=== PATIENT | female | born 1995 | race Caucasian/White ===

== ENCOUNTER 2016-10-24 22:30 | Emergency (ER) | payer OTHER ==
[2016-10-24 22:45] VITALS: BP 104/59; PULSE 86; TEMP 98.4; BMI 23.2
[2016-10-24 23:19] LABS: URINE APPEARANCE CLOUDY; URINE BILIRUBIN NEGATIVE (NEGATIVE); URINE BLOOD 2+ (NEGATIVE); URINE COLOR YELLOW; URINE GLUCOSE (UA) NEGATIVE (NEGATIVE); URINE KETONE NEGATIVE (NEGATIVE); URINE NITRITE NEGATIVE (NEGATIVE); URINE UROBILINOGEN 4.0 E.U/dl mg/dL (0.2-1.0)
[2016-10-24 23:28] LABS: URINE LEUK ESTERASE 3+ (NEGATIVE); URINE PROTEIN 2+ (NEGATIVE)
[2016-10-24 23:30] LABS: URINE BACTERIA RARE /hpf (NONE SEEN); URINE RBC 358 /hpf (0-3); URINE WBC 454 /hpf (3-5)
--- NOTE | 2016-10-24 23:47 | PDOC ---
History of Present Illness - General Chief Complaint: Urinary Problem Stated Complaint: PAIN WITH URINATION Time Seen by Provider: 10/24/16 23:16 History Source: Patient Exam Limitations: No Limitations - History of Present Illness Travel History: No Initial Comments: 10/24/16 23:43 20yo Female patient with no significant past medical history presents to ED c/o frequent urination, urgency, pain on urination and bleeding. Patient reports symptoms began yesterday. Associated back pain. Denies fever, n/v/d, abd pain, diff breathing, rash, vaginal bleeding, or any other complaints at this time. LNMP: Oct 08. Timing/Duration: reports: getting worse Quality: reports: mild Abdominal Pain Onset Location: reports: suprapubic Pain Radiation: reports: no radiation Activities at Onset: denies: none, exertion, emotional upset, rest, sleep, no specific activity, eating, working, sexual intercourse, other Treatment Prior to Arrive: worse with: analgesics, antacids, cold pack, heat, laxative, enema, other Aggravating Factors: worse with: None, Defecation, Eating, Emotional upset, Exertion, [place], Movement, Voiding, Change in position Alleviating Factors: worse with: None, Belching, Shallow Breathing, Defecation, Eating, Holding Breath, Passing Gas, Change in Position, Rest, Voiding, Vomiting Past History - Travel Traveled outside of the country in the last 30 days: No Close contact w/someone who was outside of country & ill: No - Past Medical History Allergies/Adverse Reactions: Allergies Allergy/AdvReac Type Severity Reaction Status Date / Time No Known Allergies Allergy Verified 10/24/16 22:43 Home Medications: Ambulatory Orders Nitrofurantoin Monohyd/M-Cryst [Macrobid -] 100 mg PO BID #14 capsule 02/08/16 Levofloxacin [Levaquin] 750 mg PO DAILY #5 tablet 10/24/16 - Reproductive History Is Patient Now?: No - Psycho/Social/Smoking Cessation Hx Suicidal Ideation: No Smoking History: Never smoked Hx Alcohol Use: No Drug/Substance Use Hx: No Substance Use Type: None Abd/GI Specific PMHX - Complaint Specific PMHX Colitis: No Diverticulitis: No Gall Bladder Disease: No GERD: No Hepatitis: No Irritable Bowel Synd (IBS): No Pancreatitis: No GI Ulcer Disease: No Review of Systems - Review of Systems Able to Perform ROS?: Yes Is the patient limited [place] proficient: No Constitutional: No: Chills, Fever ABD/GI: No: Diarrhea, Nausea, Poor Appetite, Poor Fluid Intake, Vomiting, Abdominal cramping : Yes: Burning, Dysuria, Hematuria, Pain, Urgency. No: Discharge, Flank Pain Musculoskeletal: Yes: Back Pain All Other Systems: Reviewed and Negative *Physical Exam - Vital Signs Last Vital Signs Temp Pulse Resp BP Pulse Ox 98.4 F 86 18 104/59 99 10/24/16 22:43 10/24/16 22:43 10/24/16 22:43 10/24/16 22:43 10/24/16 22:43 - Physical Exam General Appearance: Yes: Nourished, Appropriately Dressed. No: Apparent Distress, Mild Distress, Moderate Distress, Severe Distress Respiratory/Chest: positive: Lungs Clear, Normal Breath Sounds. negative: Chest Tender, Respiratory Distress, Accessory Muscle Use, Labored Respiration, Rapid RR Cardiovascular: positive: Regular Rhythm, Regular Rate Gastrointestinal/Abdominal: positive: Normal Bowel Sounds, Soft. negative: Distended, Guarding, Rebound, Tenderness Musculoskeletal: positive: Normal Inspection. negative: CVA Tenderness, Decreased Range of Motion, Vertebral Tenderness Extremity: positive: Normal Capillary Refill, Normal Inspection, Normal Range of Motion. negative: Pedal Edema, Swelling, Calf Tenderness, Erythema, Inflammation Integumentary: positive: Normal Color, Dry, Warm Neurologic: positive: in flight technician II-XII NML intact, Fully Oriented, Alert, Normal Mood/ Affect, Normal Response, Motor Strength 5/5 ED Treatment Course - ADDITIONAL ORDERS Additional order review: Laboratory Results 10/24/16 23:10 Urine Color Yellow Urine Appearance Cloudy Urine pH 7.0 Urine Protein 2+ H Urine Glucose (UA) Negative Urine Ketones Negative Urine Blood 2+ H Urine Nitrite Negative Urine Bilirubin Negative Urine Urobilinogen 4.0 e.u/dl H Ur Leukocyte Esterase 3+ H Urine RBC 358 Urine WBC 454 Ur Epithelial Cells Rare Urine Bacteria Rare Urine HCG, Qual Negative *DC/Admit/Observation/Transfer Diagnosis at time of Disposition: Urinary tract infection Qualifiers: Urinary tract infection type: acute cystitis Hematuria presence: with hematuria Qualified Code(s): N30.01 - Acute cystitis with hematuria - Discharge Dispostion Disposition: HOME Condition at time of disposition: Stable Admit: No - Prescriptions Prescriptions: Levofloxacin [Levaquin] 750 mg PO DAILY #5 tablet - Patient Instructions Printed Discharge Instructions: Urinary Tract Infection Additional Instructions: Follow up with your primary care provider. Take medications as prescribed. Return if symptom do not improve or become worse. Drink plenty water, or try cranberry juice. Print Language: DANISH
[2016-10-24] MEDS ORDERED: LEVOFLOXACIN 250 MG TABLET (FP) PO ONE (23:49)
[2016-10-24] MEDS ORDERED: PHENAZOPYRIDINE HCL 100 MG TABLET (FP) PO ONE (23:51)
[2016-10-25] MEDS ORDERED: LEVOFLOXACIN 500 MG TABLET (FP) ONE (00:09)
[2016-10-25] MEDS ORDERED: PHENAZOPYRIDINE HCL 100 MG TABLET (FP) ONE (00:09)
[2016-10-25] MEDS ORDERED: LEVOFLOXACIN 250 MG TABLET (FP) ONE (00:10)
--- NOTE | 2016-10-27 12:27 | PDOC ---
Patient Follow-up (Call Back) - Post ED Follow - Up Condition at time of discharge: Stable Disposition at time of original discharge: HOME Reason for Call Back: Abnwl. Microbiology (Positive urine culture, on Levaquin, susceptible appropriate treatment.)
== END 2016-10-25 00:30 | disposition home or self-care (01) ==
LOC: JER 22:30
DX: N30.01 Acute cystitis with hematuria (principal)
CPT/HCPCS: 81003; 81015; 84703; 87086; 87186; 99282-25

== ENCOUNTER → 2023-11-30 | Day surgery (SDC) | payer OTHER | END | disposition home or self-care (01) | LOC: JRADUS-SUR 10:33 | PROVIDERS: ATTEND Internal Medicine | PROC: 0HBT3ZX Excision of Right Breast, Percutaneous Approach, Diagnostic (ICD-10-PCS; principal; 2023-11-30) | DX: N63.14 Unspecified lump in the right breast, lower inner quadrant (principal) | CPT/HCPCS: 19083; 76942-TC; 87899; 88305-TC; 88312-TC; 88342-TC; A4648 ==

== ENCOUNTER 2023-12-21 21:00 | Emergency (ER) | payer OTHER ==
[2023-12-21 21:08] VITALS: BP 111/63; PULSE 94; RESP 18; TEMP 98.8; BMI 24.2
[2023-12-21] MEDS ORDERED: AMOX TR/POT CLAV 875MG/125MG TABLETS (FP) ONE (23:14)
[2023-12-21] MEDS: AMOX TR/POT CLAV 875MG/125MG TABLETS (FP) PO ONE (23:36)
== END 2023-12-22 00:03 | disposition home or self-care (01) ==
LOC: JERFT 21:00 → JER 21:00
DX: N61.1 Abscess of the breast and nipple (principal); N64.4 Mastodynia
CPT/HCPCS: 99283-25